=== PATIENT | male | born 1950 | race Caucasian/White ===

== ENCOUNTER 2017-01-18 15:03 | Inpatient (IN) | payer MEDICARE, OTHER ==
[~2017-01-18 15:03] MED LIST: ADVAIR 250/501 DISK INH; BENADRYL25 MG PO; DALIRESP500 MCG PO; IPRAT-ALBUT 0.5-3 ML UPD; MEDROL DOSE PACK4 MG PO; MUCINEX DM ER1 EAC1 PO; SINGULAIR10 MG PO; TESSALON PERLE100 MG PO; VENTOLIN HFA18 GM INH; VICOPROFEN 7.5/1 TAB PO; ZANTAC150 MG PO
[2017-01-18 16:00] VITALS: BP 135/74
--- NOTE | 2017-01-18 16:15 | NUR ---
ASSESSMENT PER FLOW SHEET.PT WITHOUT DISTRESS.SATS 98 ON 2 LITERS PER NASAL CANULA. IV SITED TO LEFT FOREARM X1 STICK USING ASEPTIC TECH,20 G.ORIENTATION TO ROOM WITH PT AND FAMILY. CALL LIGHT USE INSTRUCTED. FALL PREVENTION INITIATED. BED ALARM ON AND FUNCTIONING.
[2017-01-18 16:18] LABS: BASOPHILS 0.2 % (0-2); EOSINOPHILS 0.2 % (0-7); HEMATOCRIT 28.7 % (42.0-54.0); HEMOGLOBIN 9.5 g/dL (13.5-17.5); IMMATURE GRANULOCYTES 0.6 % (0-5); MCH 31.3 pg (26.0-34.0); MCHC 33.1 g/dL (31.0-37.0); MCV 94.4 fL (80.0-100.0); MEAN PLATELET VOLUME 9.5 fL (7.4-10.4); MONOCYTES 7.7 % (2-11); NEUTROPHILS 78.3 % (40-80); PLATELET COUNT 619 10x3/uL (130-400); RBC 3.04 10x6/uL (4.20-6.10); RDW 13.8 % (11.5-14.5); WBC 10.3 10x3/uL (4.8-10.8)
[2017-01-18] MEDS ORDERED: MUCINEX1200 MG/BO PO (17:07)
[2017-01-18 17:08] LABS: ALBUMIN 2.9 g/dL (3.4-5.0); ALKALINE PHOSPHATASE 66 U/L (46-116); ALT (SGPT) 16 U/L (10-68); CALC OSMOLALITY 282 mosm/kg (275-300); CALCIUM 8.3 mg/dL (8.5-10.1); CARBON DIOXIDE 24.9 mmol/L (21.0-32.0); CHLORIDE - SERUM 106 mmol/L (98-107); CREATININE - SERUM 0.8 mg/dL (0.6-1.3); POTASSIUM - SERUM 4.2 mmol/L (3.5-5.1); PROTEIN - SERUM 6.2 g/dL (6.4-8.2); SODIUM 142 mmol/L (136-145); UREA NITROGEN 12 mg/dL (7-18); eGFR NON AFRICAN AMERICAN > 90 mL/min (90-120)
[2017-01-18 17:09] LABS: GLUCOSE 96 mg/dL (74-106)
[2017-01-18] MEDS ORDERED: PROTONIX40 MG PO (17:10)
[2017-01-18 17:42] VITALS: BP 135/74; BMI 20.1
--- NOTE | 2017-01-18 18:37 | NUR ---
BACK FROM CTA.REMAINS WITHOOUT DISTRESS.CALL LIGHT IN REACH.
[2017-01-18 18:39] LABS: CKMB 0.6 U/L (0.0-3.6); CREATINE KINASE 68 UL (21-232); TROPONIN-I < 0.017 ng/mL (0.000-0.060)
[2017-01-18 21:30] VITALS: BP 117/57
[2017-01-19 00:20] VITALS: BP 129/66
[2017-01-19 01:05] LABS: CKMB 0.3 U/L (0.0-3.6); CREATINE KINASE 44 UL (21-232); TROPONIN-I < 0.017 ng/mL (0.000-0.060)
[2017-01-19 06:04] LABS: BASOPHILS 0.4 % (0-2); EOSINOPHILS 0.9 % (0-7); HEMATOCRIT 26.3 % (42.0-54.0); HEMOGLOBIN 8.9 g/dL (13.5-17.5); IMMATURE GRANULOCYTES 0.8 % (0-5); LYMPHOCYTES 17.2 % (15-50); MCH 31.3 pg (26.0-34.0); MCHC 33.8 g/dL (31.0-37.0); MCV 92.6 fL (80.0-100.0); MONOCYTES 11.2 % (2-11); NEUTROPHILS 69.5 % (40-80); PLATELET COUNT 561 10x3/uL (130-400); RBC 2.84 10x6/uL (4.20-6.10); RDW 13.7 % (11.5-14.5)
[2017-01-19 06:29] LABS: WBC 7.6 10x3/uL (4.8-10.8)
[2017-01-19 06:43] LABS: ALBUMIN 2.5 g/dL (3.4-5.0); ALKALINE PHOSPHATASE 62 U/L (46-116); ALT (SGPT) 17 U/L (10-68); BILIRUBIN - TOTAL 0.21 mg/dL (0.2-1.3); CALC OSMOLALITY 284 mosm/kg (275-300); CALCIUM 8.4 mg/dL (8.5-10.1); CARBON DIOXIDE 25.4 mmol/L (21.0-32.0); CHLORIDE - SERUM 108 mmol/L (98-107); CKMB 0.5 U/L (0.0-3.6); CREATINE KINASE 38 UL (21-232); CREATININE - SERUM 0.8 mg/dL (0.6-1.3); GLUCOSE 107 mg/dL (74-106); PROTEIN - SERUM 6.3 g/dL (6.4-8.2); SODIUM 143 mmol/L (136-145); UREA NITROGEN 13 mg/dL (7-18); eGFR NON AFRICAN AMERICAN > 90 mL/min (90-120)
[2017-01-19 06:44] LABS: POTASSIUM - SERUM 3.4 mmol/L (3.5-5.1); TROPONIN-I < 0.017 ng/mL (0.000-0.060)
--- NOTE | 2017-01-19 07:50 | NUR ---
PT AOX4 RESP EVEN AND NONLABORED PT DENIES NEEDS AT THIS TIME IV TO LEFT FOREARM PATENT AND INTACT AT THIS TIME SRX2 BED AT LOWEST SETTING CALL LIGHT WITHIN REACH WILL CONTINUE TO MONITOR
[2017-01-19 08:16] VITALS: BP 121/64
[2017-01-19 13:04] VITALS: BMI 19.8
--- NOTE | 2017-01-19 15:10 | NUR ---
Patient Name: PRAMOD BARRERA Admission Status: Urgent Accout number: [id number] Admission Date: 01-19-2017 : 1950 Admission Diagnosis: Attending: BABAR ZURITA Current LOS: 1 Anticipated DC Date: 01-19-2017 Planned Disposition: Home Primary Insurance: MEDICARE PART A ONLY Discharge Planning Comments: CM MET WITH PATIENT REGARDING D/C NEEDS AND PLANS. PATIENT STATED HE LIVES WITH HIS (MARIN) AND SHE WILL DRIVE HIM HOME AT DISCHARGE. PATIENT STATED HE HAS 8 STEPS WITH RAILS TO ENTER HIS HOME AND NO STAIRS INSIDE. PATIENT IS INDEPENDENT WITH HIS CARE AND HAS A WALKER, WHEELCHAIR, SHOWER CHAIR, BS COMMODE, OXYGEN, PORTABLE O2, AND NEBULIZER AT HOME. PATIENTS PCP IS DR. ZURITA AND PHARMACY IS [facility] AT THE [facility]. PATIENT HAS REFUSED HOME HEALTH. CM WILL CONTINUE TO FOLLOW PATIENT WITH D/C NEEDS AND PLANS. PCP DR. YUDITH LLOYD AT THE [facility] [phone] MARIN () [phone] Log Loader Helper: Diane Bai Is the patient Alert and Oriented? Yes 0 * How many steps to enter\exit or inside your home? 8 W/RAILS 0 * PCP DR. ZURITA 0 * Pharmacy [facility] 0 * Preadmission Environment Home with Family 0 * ADLs Independent 0 * Equipment Bedside Commode Nebulizer Oxygen Shower Chair Walker 0 * List name and contact numbers for known caregivers / representatives who currently or will assist patient after discharge: MARIN () [phone] * Community resources currently utilized None 0 * Additional services required to return to the preadmission environment? Yes 0 * Can the patient safely return to the preadmission environment? Yes 0 * Has this patient been hospitalized within the prior 30 days at any hospital? No 0 Grand Total: 0
[2017-01-19 19:30] VITALS: BP 124/60
--- NOTE | 2017-01-19 19:45 | NUR ---
RECIEVED REPORT, ASSUMED CARE OF PT. AOX4 DENIES ANY NEEDS AT THIS TIME. IV LEFT FOREARM INFILTRATED. CATH TIP INTACT. WILL RESITE IV. SCD'S ON. CALL LIGHT IN REACH, BED IN LOWEST POSITION. WILL CONTINUE TO MONITOR.
--- NOTE | 2017-01-19 21:33 | NUR ---
22G IV TO RIGHT FOREARM X1 ATTEMPT WITH GOOD BLOOD RETURN WITH NS KVO. CALL LIGHT IN REACH, BED LOW.
[2017-01-19 23:22] VITALS: BP 122/60
[2017-01-20 05:14] LABS: BASOPHILS 0.2 % (0-2); EOSINOPHILS 1.6 % (0-7); HEMATOCRIT 26.3 % (42.0-54.0); HEMOGLOBIN 8.7 g/dL (13.5-17.5); IMMATURE GRANULOCYTES 0.7 % (0-5); LYMPHOCYTES 15.8 % (15-50); MCH 31.3 pg (26.0-34.0); MCHC 33.1 g/dL (31.0-37.0); MEAN PLATELET VOLUME 9.3 fL (7.4-10.4); MONOCYTES 13.8 % (2-11); NEUTROPHILS 67.9 % (40-80); PLATELET COUNT 614 10x3/uL (130-400); RBC 2.78 10x6/uL (4.20-6.10); RDW 14.2 % (11.5-14.5); WBC 8.2 10x3/uL (4.8-10.8)
[2017-01-20 05:37] LABS: MCV 94.6 fL (80.0-100.0)
[2017-01-20 05:48] LABS: ALBUMIN 2.4 g/dL (3.4-5.0); ALKALINE PHOSPHATASE 59 U/L (46-116); ALT (SGPT) 13 U/L (10-68); BILIRUBIN - TOTAL 0.13 mg/dL (0.2-1.3); CALC OSMOLALITY 284 mosm/kg (275-300); CALCIUM 7.6 mg/dL (8.5-10.1); CARBON DIOXIDE 27.9 mmol/L (21.0-32.0); CHLORIDE - SERUM 107 mmol/L (98-107); CREATININE - SERUM 0.9 mg/dL (0.6-1.3); GLUCOSE 109 mg/dL (74-106); POTASSIUM - SERUM 3.4 mmol/L (3.5-5.1); SODIUM 143 mmol/L (136-145); eGFR NON AFRICAN AMERICAN 90 mL/min (90-120)
[2017-01-20 05:51] LABS: UREA NITROGEN 9 mg/dL (7-18)
--- NOTE | 2017-01-20 07:02 | NUR ---
REPORT RECEIVED, ASSUMED CARE OF PT. RESTING, EYES SHUT, EASILY AROUSED. R FOREARM IV INFUSING ORDERED, DRSG C/D/I. O2 AT 2L VIA NASAL CANNULA. TELEMETRY IN PLACE, SR 96 BPM. NO NEEDS VOICED AT THIS TIME. BED IN LOWEST POSITION, SIDE RAILS UP X 2, CALL LIGHT WITHIN REACH.
[2017-01-20] MEDS ORDERED: TESSALON PERLE100 MG PO (14:32)
[2017-01-20] MEDS ORDERED: LEVAQUIN500 MG PO (14:33)
[2017-01-20] MEDS ORDERED: DALIRESP500 MCG PO (14:33)
[2017-01-20] MEDS ORDERED: IPRAT-ALBUT 0.5-3 ML UPD (14:34)
[2017-01-20] MEDS ORDERED: BROVANA15 MCG/2 M INH (14:34)
[2017-01-20] MEDS ORDERED: PULMICORT0.5 MG/21 UPD (14:34)
--- NOTE | 2017-01-20 15:09 | NUR ---
CM REASSESSMENT NOTE: PATIENT IS DISCHARGING HOME TODAY/FAMILY DRIVING HIM/ PORTABLE O2 IN ROOM. PATIENT REFUSED HOME HEALTH.
--- NOTE | 2017-01-20 15:56 | NUR ---
R FOREARM IV D/C'D, CATHETER INTACT, BLEED CONTROL, BANDAGE APPLIED. TELEMETRY D/C'D AND RETURNED TO [facility]. DISCHARGE INSTRUCTIONS GIVEN TO PT AND FAMILY, VERBALIZED UNDERSTANDING AND SIGNED.
--- NOTE | 2017-01-20 16:03 | NUR ---
PT DISCHARGED FROM FLOOR WITH HOSPITAL STAFF TO FAMILY VEHICLE. PERSONAL BELONGINGS WITH PT.
== END 2017-01-20 16:04 | disposition home or self-care (01) | DRG 189 ==
LOC: D.MS 15:03 → OBSVTIME 15:04 → D.MS 01-19 12:35
PROVIDERS: Family Medicine; ADMIT Family Medicine
DX: J96.01 Acute respiratory failure with hypoxia (principal); J44.1 Chronic obstructive pulmonary disease with (acute) exacerbation; J96.02 Acute respiratory failure with hypercapnia; R55 Syncope and collapse; Z87.891 Personal history of nicotine dependence

== ENCOUNTER 2017-02-28 07:09 | Day surgery (SDC) | payer MEDICARE, OTHER ==
[~2017-02-28] VITALS: Ht 177.8 cm; Wt 63.6 kg
[~2017-02-28 07:09] MED LIST changes: +BROVANA15 MCG/2 M INH; +LEVAQUIN500 MG PO; +MUCINEX1200 MG/BO PO; +PROTONIX40 MG PO; +PULMICORT0.5 MG/21 UPD
[2017-02-28] MEDS ORDERED: PROTONIX40 MG PO (07:36)
[2017-02-28 07:48] VITALS: Ht 177.8 cm; Wt 63.6 kg
[2017-02-28 07:57] LABS: HEMATOCRIT 41.7 % (42.0-54.0); MCH 31.5 pg (26.0-34.0); MCHC 33.6 g/dL (31.0-37.0); MCV 93.7 fL (80.0-100.0); MEAN PLATELET VOLUME 9.8 fL (7.4-10.4); RBC 4.45 10x6/uL (4.20-6.10); RDW 13.3 % (11.5-14.5); WBC 6.5 10x3/uL (4.8-10.8)
--- NOTE | 2017-02-28 08:16 | NUR ---
STARTED 20 GAUGE IV ON RIGHT FOREARM. CDI AND PATENT. 1 ATTEMPT.
--- NOTE | 2017-02-28 09:25 | NUR ---
PT REC'D TO ROOM VIA STRETCHER. AWAKE, ALERT, ORIENTED. 02 ON PER NC @2L. VOISE IN TO SPEAK WITH PT.
--- NOTE | 2017-02-28 09:38 | NUR ---
FULL LIQ DIET PROVIDED.
--- NOTE | 2017-02-28 09:41 | NUR ---
TOLERATED FULL LIQ DIET.
--- NOTE | 2017-02-28 09:55 | NUR ---
IV D/C'D CATH INTACT.
--- NOTE | 2017-02-28 10:10 | NUR ---
D/C INSTRUCTIONS EXPLAINED TO PT. VOICED UNDERSTANDING. COPIES OF ALL GIVEN. PORTABLE 02 ON FOR PT TO BE WHEELED TO D/C.
--- NOTE | 2017-02-28 10:31 | NUR ---
D/C'D HOME VIA W/C TO PRIVATE CAR.
--- NOTE | 2017-03-03 11:51 | OP ---
PATIENT NAME: PRAMOD BARRERA MEDICAL RECORD: [id number] :52 LOCATION:[facility] ADMISSION DATE: SURGEON: MARYAN CARDONA DO DATE OF OPERATION: 02/28/2017 PROCEDURE: EGD with biopsies. INDICATIONS FOR PROCEDURE: Heartburn, melena, fecal occult blood positive. SCOPE: Olympus video gastroscope. MEDICATIONS: Propofol 250 mg IV per anesthesia. ESTIMATED BLOOD LOSS: Minimal. COMPLICATIONS: None. FINDINGS: Informed consent was given. The patient was made comfortable with the above medication. After reaching an adequate level of sedation by slow IV push, the patient was placed on his left side. The endoscope was then advanced under direct visualization through the mouth to the second portion of the duodenum. The upper, middle, and lower thirds of the esophagus appeared normal. At the GE junction, there was mild evidence of reflux esophagitis. The endoscope was advanced into the stomach where a moderate to large amount of retained food was present. Retroflexion was attempted, but due to the remaining food in the stomach, the cardia could not be well visualized up close. Throughout the entire stomach, there was congestion and edema as well as some erythema and granularity. These findings are consistent with gastritis. Random biopsies were taken to submit for histology and to rule out the presence of H. pylori. The endoscope was advanced into the duodenum where there was flattening of the villi and duodenitis present. Random biopsies were taken from the bulb and second portion of the duodenum. The endoscope was then withdrawn from the patient. The patient tolerated the procedure well and there were no complications. IMPRESSION: 1. LA class A reflux-induced esophagitis. 2. Erythema, granularity, and edema of the stomach consistent with gastritis. Biopsies were taken. 3. Moderate to large amount of retained food within the stomach. 4. Flattening of the villi in the duodenum and some granularity consistent with duodenitis. Biopsies were taken. PLAN AND RECOMMENDATIONS: 1. Discharge home when recovery parameters are met. 2. Follow up biopsy specimen results. 3. Continue pantoprazole 40 mg, but decrease to daily use in the a.m. 4. Gastric emptying scan regarding the significant food retention on today's examination. 5. Consider a repeat upper endoscopy if melena or patient remains anemic and/or is fecal occult blood positive. There were no ulcers or abnormalities other than the gastritis and duodenitis present on today's examination. There was a moderate amount of stomach that was not visualized due to the presence of food, which could not be removed from the stomach. 6. Discontinue use of alcohol. OPERATIVE REPORT [id number] BRUCEPRAMOD NANDA TRANSINT:[id number] Voice Confirmation ID: [id number] DOCUMENT ID: [id number] MARYAN CARDONA DO at 1151 CC: [id number] DICTATION DATE: 02/28/17911 GOVERNMENT RELATIONS DIRECTOR: 02/28/17 1045 [facility] 02/28/17 [facility] [address] [place] [address]
== END 2017-02-28 10:31 | disposition home or self-care (01) ==
LOC: D.OPS 07:09
PROVIDERS: Anesthesiology
DX: R12 Heartburn (principal); K21.0 Gastro-esophageal reflux disease with esophagitis; R19.5 Other fecal abnormalities; Z01.812 Encounter for preprocedural laboratory examination; F17.200 Nicotine dependence, unspecified, uncomplicated; J44.9 Chronic obstructive pulmonary disease, unspecified

== ENCOUNTER 2017-03-07 05:52 | Day surgery (SDC) | payer MEDICARE, OTHER ==
[~2017-03-07] VITALS: Ht 177.8 cm; Wt 63.6 kg
[2017-03-07 06:21] VITALS: Ht 177.8 cm; Wt 63.6 kg
[2017-03-07 06:55] LABS: HEMATOCRIT 42.6 % (42.0-54.0); HEMOGLOBIN 14.6 g/dL (13.5-17.5); MCH 31.7 pg (26.0-34.0); MCHC 34.3 g/dL (31.0-37.0); MCV 92.4 fL (80.0-100.0); MEAN PLATELET VOLUME 9.9 fL (7.4-10.4); RBC 4.61 10x6/uL (4.20-6.10); RDW 13.5 % (11.5-14.5); WBC 7.9 10x3/uL (4.8-10.8)
--- NOTE | 2017-03-07 09:27 | NUR ---
0915-RECD FROM LAB. DR CARDONA IN TO REPORT FINDINGS.
--- NOTE | 2017-03-07 09:33 | NUR ---
0930-FULL LIQUIDS SERVED.
--- NOTE | 2017-03-07 09:57 | NUR ---
0955-DISCHARGE INSTRUCTIONS REVIEWED. HANDOUT FOR HIGH FIBER DIET AND NSAIDS TO HOLD X 10-14 DAYS. 1000-D/C HOME VIA WHEELCHAIR TO PRIVATE AUTO.
--- NOTE | 2017-03-17 10:48 | OP ---
PATIENT NAME: PRAMOD BARRERA MEDICAL RECORD: [id number] :52 LOCATION:[facility] ADMISSION DATE: SURGEON: MARYAN CARDONA DO DATE OF OPERATION: 03/07/2017 PROCEDURE: Colonoscopy with endoscopic mucosal resection, polypectomy, and biopsy. INDICATIONS FOR PROCEDURE: Hemoccults positive stools and colorectal cancer screening. SCOPE: Olympus video pediatric colonoscope. MEDICATIONS: Propofol 450 mg IV per anesthesia. WITHDRAWAL TIME: 35 minutes. ESTIMATED BLOOD LOSS: Minimal. COMPLICATIONS: None. FINDINGS: Informed consent was given. The patient was made comfortable with the above medication. After reaching an adequate level of sedation by slow IV push, the patient was placed on his left side. A digital rectal examination was performed and revealed some prostate hyperplasia, but no nodules or other abnormalities. The endoscope was then advanced under direct visualization through the rectum to the terminal ileum. The scope was slowly withdrawn and mucosa was carefully examined. The prep quality was good. There was evidence of mild diverticulosis scattered throughout the entire colon with just a few actual diverticula seen. There were multiple polyps visualized on today's examination. Two were located in the ascending colon. They ranged in size from 5 mm to 1 cm. Those 2 polyps were removed in endoscopic mucosal resection technique utilizing a normal saline injection submucosally with a hot snare to completely remove the polyps and ablate the tissue surrounding those sites. In the transverse colon, 2 benign-appearing sessile polyps were visualized ranging in size from 3-6 mm in diameter. They were both removed using a hot snare in 1 piece and completely retrieved. In the descending colon, a single benign appearing sessile polyp was visualized. It measured approximately 5 mm in diameter. It was removed in 1 piece using a hot snare and completely retrieved. In the sigmoid colon, there was a single, benign appearing sessile polyp which measured approximately 3 mm in diameter. It was removed using hot forceps in 1 piece and completely retrieved. In the cecum and involving the ileocecal valve, there appeared to be a significant prominence of the valve versus an adenomatous polyp versus submucosal lesion emanating from the terminal ileum. To distinguish between these findings, multiple cold forceps biopsies were taken to submit for histology. The endoscope was withdrawn from the patient. The patient tolerated the procedure well and there were no complications. IMPRESSION: 1. Multiple polyps as described above removed using various techniques. 2. Mild diverticulosis scattered throughout the entire colon. 3. Prominent ileocecal valve versus adenomatous polyp versus submucosal lesion with biopsies pending. PLAN AND RECOMMENDATIONS: OPERATIVE REPORT [id number] BRUCEDARNELLPRAMOD NANDA 1. Discharge home when recovery parameters are met. 2. Follow up biopsy specimen results. 3. If the ileocecal valve lesion is an adenomatous polyp, a referral will be made to general surgery for consideration of resection based on the location of the finding. 4. If biopsies of the ileocecal valve prominence are negative, this will be followed through repeat surveillance endoscopies. 5. High fiber diet. 6. Continue current medications, but avoid NSAIDS for 14 days. 7. Recommend a repeat colonoscopy in 6 months to 1 year and final recommendations will be dependent on results of polyps removed on today's examination. TRANSINT:[id number] Voice Confirmation ID: [id number] DOCUMENT ID: [id number] MARYAN CARDONA DO at 1048 CC: [id number] DICTATION DATE: 03/07/17 09 CERTIFIED HEALTH EDUCATION SPECIALIST: 03/07/17 1005 [facility] 03/07/17 [facility] [address] [place] [address]
== END 2017-03-07 09:58 | disposition home or self-care (01) ==
LOC: D.OPS 05:52
PROVIDERS: Anesthesiology
DX: D12.2 Benign neoplasm of ascending colon (principal); D12.4 Benign neoplasm of descending colon; D12.5 Benign neoplasm of sigmoid colon; D12.3 Benign neoplasm of transverse colon; K57.30 Diverticulosis of large intestine without perforation or abscess without bleeding; Z01.812 Encounter for preprocedural laboratory examination

== ENCOUNTER → 2017-03-09 08:12 | Outpatient (CLI) | payer MEDICARE, OTHER ==
[2017-03-07 06:21] VITALS: BMI 20.1
== END | disposition home or self-care (01) ==
LOC: D.NM 08:12
DX: R63.8 Other symptoms and signs concerning food and fluid intake (principal)

== ENCOUNTER 2018-07-07 20:07 | Emergency (ER) | payer MEDICARE, OTHER ==
[~2018-07-07] VITALS: Ht 177.8 cm; Wt 72.7 kg
[2018-07-07 20:12] VITALS: Ht 177.8 cm; Wt 72.7 kg
[2018-07-07 21:05] LABS: BASOPHILS 0.6 % (0-2); EOSINOPHILS 4.5 % (0-7); HEMATOCRIT 43.8 % (42.0-54.0); HEMOGLOBIN 15.2 g/dL (13.5-17.5); IMMATURE GRANULOCYTES 0.2 % (0-5); LYMPHOCYTES 33.7 % (15-50); MCH 31.9 pg (26.0-34.0); MCHC 34.7 g/dL (31.0-37.0); MEAN PLATELET VOLUME 9.7 fL (7.4-10.4); MONOCYTES 8.4 % (2-11); NEUTROPHILS 52.6 % (40-80); PLATELET COUNT 252 10x3/uL (130-400); RBC 4.76 10x6/uL (4.20-6.10); RDW 14.4 % (11.5-14.5); WBC 6.7 10x3/uL (4.8-10.8)
[2018-07-07 21:23] LABS: ALBUMIN 3.7 g/dL (3.4-5.0); ALKALINE PHOSPHATASE 72 U/L (46-116); ALT (SGPT) 18 U/L (10-68); BILIRUBIN - TOTAL 0.28 mg/dL (0.2-1.3); CALC OSMOLALITY 280 mosm/kg (275-300); CALCIUM 8.4 mg/dL (8.5-10.1); CARBON DIOXIDE 29.9 mmol/L (21.0-32.0); CHLORIDE - SERUM 103 mmol/L (98-107); CREATININE - SERUM 0.9 mg/dL (0.6-1.3); GLUCOSE 85 mg/dL (74-106); POTASSIUM - SERUM 4.3 mmol/L (3.5-5.1); PROTEIN - SERUM 7.9 g/dL (6.4-8.2); SODIUM 142 mmol/L (136-145); UREA NITROGEN 9 mg/dL (7-18); eGFR NON AFRICAN AMERICAN 90 mL/min (90-120)
[2018-07-07 21:30] LABS: PRO BNP 124 pg/mL (0-125)
[2018-07-07 21:39] LABS: TROPONIN-I < 0.017 ng/mL (0.000-0.060)
[2018-07-07 22:19] VITALS: BP 114/87
== END 2018-07-07 22:19 | disposition home or self-care (01) ==
LOC: D.ER 20:07
PROVIDERS: Family Medicine
DX: J44.9 Chronic obstructive pulmonary disease, unspecified (principal)

== ENCOUNTER 2019-10-26 16:59 | Emergency (ER) | payer MEDICARE, OTHER ==
[~2019-10-26] VITALS: Ht 177.8 cm; Wt 72.7 kg
[2019-10-26 17:01] VITALS: Ht 177.8 cm; Wt 72.7 kg
[2019-10-26 17:33] LABS: BASOPHILS 0.4 % (0-2); EOSINOPHILS 0.8 % (0-7); HEMATOCRIT 45.8 % (42.0-54.0); HEMOGLOBIN 15.9 g/dL (13.5-17.5); IMMATURE GRANULOCYTES 0.6 % (0-5); LYMPHOCYTES 17.4 % (15-50); MCH 33.5 pg (26.0-34.0); MCHC 34.7 g/dL (31.0-37.0); MCV 96.4 fL (80.0-100.0); MEAN PLATELET VOLUME 9.4 fL (7.4-10.4); MONOCYTES 6.5 % (2-11); NEUTROPHILS 74.3 % (40-80); PLATELET COUNT 277 10x3/uL (130-400); RBC 4.75 10x6/uL (4.20-6.10); RDW 13.5 % (11.5-14.5); WBC 8.5 10x3/uL (4.8-10.8)
[2019-10-26 17:36] LABS: CALC OSMOLALITY 268 mosm/kg (275-300); CALCIUM 7.8 mg/dL (8.5-10.1); CARBON DIOXIDE 26.7 mmol/L (21.0-32.0); CHLORIDE - SERUM 100 mmol/L (98-107); POTASSIUM - SERUM 4.6 mmol/L (3.5-5.1); SODIUM 135 mmol/L (136-145); UREA NITROGEN 16 mg/dL (7-18); eGFR NON AFRICAN AMERICAN 79 mL/min (90-120)
[2019-10-26 17:42] LABS: ALBUMIN 3.5 g/dL (3.4-5.0); ALKALINE PHOSPHATASE 97 U/L (30-120); ALT (SGPT) 32 U/L (10-68); BILIRUBIN - TOTAL 0.26 mg/dL (0.2-1.3); PROTEIN - SERUM 7.5 g/dL (6.4-8.2)
[2019-10-26 17:47] LABS: BILIRUBIN NEGATIVE (NEGATIVE); GLUCOSE NEGATIVE (NEGATIVE); KETONE NEGATIVE (NEGATIVE); NITRITE NEGATIVE (NEGATIVE); UROBILINOGEN NORMAL (NORMAL)
[2019-10-26 17:51] LABS: GLUCOSE 69 mg/dL (74-106)
[2019-10-26 17:56] LABS: UDS - AMPHET NEGATIVE QUAL (NEGATIVE); UDS - BARB NEGATIVE QUAL (NEGATIVE); UDS - BENZO POSITIVE QUAL (NEGATIVE); UDS - COCAINE NEGATIVE QUAL (NEGATIVE); UDS - OPIATE NEGATIVE QUAL (NEGATIVE); UDS - PCP NEGATIVE QUAL (NEGATIVE); UDS - THC NEGATIVE QUAL (NEGATIVE)
[2019-10-26] MEDS ORDERED: VOLTAREN25 MG PO (18:46)
[2019-10-26] MEDS ORDERED: BACLOFEN20 M1 PO (18:46)
[2019-10-26 18:56] LABS: APTT 28.5 SECONDS (22.8-39.4); INR 0.97 (0.85-1.17); PROTIME 12.9 SECONDS (11.6-15.0)
[2019-10-26 20:35] VITALS: BP 103/57
== END 2019-10-26 20:35 | disposition home or self-care (01) ==
LOC: D.ER 16:59
PROVIDERS: Emergency Medicine
DX: F10.129 Alcohol abuse with intoxication, unspecified (principal); Y90.8 Blood alcohol level of 240 mg/100 ml or more; M54.9 Dorsalgia, unspecified; V89.2XXA Person injured in unspecified motor-vehicle accident, traffic, initial encounter; Y93.9 Activity, unspecified; Y92.9 Unspecified place or not applicable; J44.9 Chronic obstructive pulmonary disease, unspecified; K21.9 Gastro-esophageal reflux disease without esophagitis; Z72.0 Tobacco use